=== PATIENT | female | born 1955 | race Caucasian/White ===

== ENCOUNTER 2017-12-22 17:34 | Observation (INO) ==
[2017-12-22] MEDS ORDERED: Aspirin 81 MG TAB.CHEW PO ONE (18:15)
--- NOTE | 2017-12-22 18:20 | Emergency Department Note ---
Disposition Clinical Impression: Chest pain Qualifiers: Chest pain type: unspecified Qualified Code(s): R07.9 - Chest pain, unspecified Headache Qualifiers: Headache type: unspecified Headache chronicity pattern: chronic headache Intractability: not intractable Qualified Code(s): R51 - Headache Disposition: Admitted As Inpatient General Adult HPI - General Chief complaint: ED Shortness of Breath/Dyspnea Stated complaint: Chest pressure,ABD Pain,NAVARRO Time Seen by Provider: 12/22/17 17:56 Source: patient Mode of arrival: private vehicle Limitations: no limitations Nursing Notes Reviewed: Yes Vital Signs Reviewed: Yes - History of Present Illness HPI Narrative: 62-year-old female with past medical history including hypertension, diabetes, who presents with a chief complaint of chest pressure and headache. Patient states for the past 5 days she has been having progressively worsening constant chest pressure which worsens when she lays down. This is associated with shortness of breath and dyspnea on exertion. She has never had this before. She is also complaining of a gradual generalized throbbing headache which she states she gets when she has elevated blood pressure. She has not tried anything for the pain. She is also complaining of right upper quadrant abdominal pain and bloating when she eats. She has some associated nausea. She states she had her gallbladder removed a while back. She followed up with her nurse practitioner today who advised the patient to come to the ED for further evaluation. She denies fevers, numbness or weakness, dysuria, hematochezia, vomiting, lower extremity swelling. She states she has had a catheterization in 2009 and no stents placed. She she was told she had a small blockage in the back of her heart. She also had a stress test at that time as well. Pain Scale: 9 - Related Data Home Medications Medication Instructions Recorded Confirmed Acetaminophen [Tylenol] 1,000 mg PO Q6HR 05/11/16 12/22/17 Amlodipine Besylate/Benazepril 1 cap PO DAILY 05/11/16 12/22/17 [Lotrel 10-20 mg Capsule] Atorvastatin [Lipitor] 40 mg PO HS 05/11/16 12/22/17 Carvedilol [Coreg] 25 mg PO BID 05/11/16 12/22/17 Celecoxib [Celebrex] 200 mg PO DAILY 05/11/16 12/22/17 Fluticasone Furoate [Arnuity 1 puff IH DAILY 05/11/16 12/22/17 Ellipta] Mometasone Furoate [Nasonex] 1 spray NS BID 05/11/16 12/22/17 Nitroglycerin [Nitrostat] 0.4 mg SL AD PRN 05/11/16 12/22/17 Raloxifene [Evista] 60 mg PO DAILY 05/11/16 12/22/17 Sertraline [Zoloft] 100 mg PO DAILY 05/11/16 12/22/17 Tizanidine HCl 4 mg PO Q8H PRN 05/11/16 12/22/17 Topiramate [Topamax] 100 mg PO BID 05/11/16 12/22/17 Albuterol Sulfate [Ventolin Hfa] 2 puff IH Q4H PRN 12/22/17 12/22/17 Cholecalciferol (Vitamin D3) 1,000 unit PO DAILY 12/22/17 12/22/17 [Vitamin D] Esomeprazole Magnesium [Nexium] 40 mg PO DAILY 12/22/17 12/22/17 Fluticasone Propionate Nasal 2 spray NS DAILY 12/22/17 12/22/17 [Flonase] Meclizine [Antivert] 25 mg PO DAILY PRN 12/22/17 12/22/17 Metformin HCl [Metformin HCl] 500 mg PO DAILY 12/22/17 12/22/17 Nystatin [Nystatin Suspension] 4 ml PO QID PRN 12/22/17 12/22/17 Ondansetron HCl [Ondansetron HCl] 4 mg PO Q8HR PRN 12/22/17 12/22/17 SUMAtriptan succinate [Imitrex] 50 mg PO DAILY 12/22/17 12/22/17 Sertraline [Zoloft] 25 mg PO DAILY 12/22/17 12/22/17 Tramadol HCl [Ultram] 50 mg PO QID PRN 12/22/17 12/22/17 Umeclidinium Brm/Vilanterol Tr 1 puff PO DAILY 12/22/17 12/22/17 [Anoro Ellipta 62.5-25 Mcg INH] Vit C/E/Zn/Coppr/Lutein/Zeaxan 2 cap PO DAILY 12/22/17 12/22/17 [Preservision Areds 2 Softgel] hydroCHLOROthiazide 25 mg PO DAILY 12/22/17 12/22/17 [Hydrochlorothiazide] raNITIdine HCl [Ranitidine HCl] 300 mg PO DAILY 12/22/17 12/22/17 Allergies Allergy/AdvReac Type Severity Reaction Status Date / Time ampicillin Allergy Difficulty Verified 12/22/17 21:42 Swallowing codeine Allergy Difficulty Verified 12/22/17 21:42 Swallowing All systems ED: reviewed and negative except as stated. Review of Systems: As Per HPI Constitutional: Denies: fever, chills Eyes: Denies: vision change ENT ED: Denies: throat pain, dysphagia Cardiovascular: Reports: chest pain, dyspnea on exertion, orthopnea. Denies: palpitations, edema Respiratory: Reports: dyspnea. Denies: wheezes, hemoptysis Gastrointestinal: Reports: nausea. Denies: vomiting, hematochezia Genitourinary: Denies: dysuria Musculoskeletal: Reports: neck pain (hsitory of cervical stenosis) Integumentary: Denies: rash Neurological: Reports: headache. Denies: weakness, numbness Hematological/Lymphatic: Denies: easy bruising Allergic/Immunologic: Denies: itchy eyes Past Medical History - Past Medical History Attestation: Yes The following information was validated with the patient. Source: patient Medical history: Reports: arthritis, coronary artery disease, GERD, hyperlipidemia, hypertension Surgical history: Reports: cholecystectomy, hysterectomy Psychiatric history: Reports: depression - Social History Smoking Status: Former smoker Alcohol use: Reports: none Drug use: Reports: none Physical Exam - General Limitations: no limitations General appearance: alert, in no apparent distress - Head Head exam: atraumatic, normocephalic - Eye Eye exam: Present: PERRL, EOMI - ENT ENT exam: normal exam, mucous membranes moist - Respiratory Respiratory exam: Present: normal lung sounds bilaterally. Absent: respiratory distress, wheezes, stridor, accessory muscle use - Cardiovascular Cardiovascular exam: Present: regular rate, normal rhythm, normal heart sounds - Abdominal Exam Abdominal exam: Present: soft, Non-Tender. Absent: guarding, rebound, rigidity - Extremities Exam Extremities exam: Present: full ROM. Absent: pedal edema - Neurological Exam Neurological exam: Present: alert, oriented X3, CN II-XII intact - Expanded Neurological Exam Patient oriented to: Present: person, place, time Speech: Present: fluid speech Cranial nerves: EOM function (II, III, IV, ): Normal, facial sensation (V): Normal, facial palsy (VII): Normal, spinal accessory function (XI): Normal, tongue deviation (XII): Normal Cerebellar function: finger to nose: Normal, heel to nuno: Normal Motor strength - LUE: 5/5 Motor strength - RUE: 5/5 Motor strength - LLE: 5/5 Motor strength - RLE: 5/5 Upper motor neuron exam: nubia neglect: Absent bilaterally Sensory exam upper extremity: light touch: Normal Sensory exam lower extremity: light touch: Normal - Psychiatric Psychiatric exam: Present: normal affect, normal mood - Skin Skin exam: Present: warm, dry, intact. Absent: diaphoresis, pallor Course Vital Signs Temperature 98.0 F 12/22/17 17:39 Pulse Rate 78 12/22/17 17:39 Respiratory Rate 16 12/22/17 17:39 Blood Pressure 183/95 12/22/17 17:39 O2 Sat by Pulse Oximetry 98 12/22/17 17:39 Temperature 98.0 F 12/22/17 18:19 Pulse Rate 75 12/22/17 22:17 Respiratory Rate 16 12/22/17 22:17 Blood Pressure 157/101 12/22/17 22:17 O2 Sat by Pulse Oximetry 96 12/22/17 22:17 Oxygen Delivery Oxygen Delivery Room Air Medical Decision Making - [facility] Narrative Medical decision making narrative: Patient has normal neurologic exam. Patient states she has had this headache before. It may be related to her elevated blood pressure. She has taken her medications. She does not need a CT of her head at this time. She states she already follows up and receives periodic MRI to follow up a "spot on the base of her skull." The patient has a history of cardiac catheterization and presenting with new chest pressure and shortness of breath, obtain cardiac workup. Check EKG, troponin, BNP, CBC, BMP. Chest x-ray will be obtained. 18:40 Chest x-ray results reviewed. No acute cardiopulmonary process. There are no consolidation or pleural effusions noted. EKG with sinus rhythm with first degree AV block. No evidence of acute ischemia. 19:30 Labs reviewed. Troponin is <0.03 and BNP is within normal limits. Do not suspect acute congestive heart failure as a cause of her chest pain. Tylenol was ordered for her headache. 20:00 Still eating the BMP. Discussed with the patient and family at bedside that she will likely need to be admitted for further cardiac workup. Patient is agreeable to this. Hospitalist consulted at 10:08 20:28 Discussed with hospitalist, who accepts patient for further cardiac workup. - Medical Records Medical records reviewed: Yes I reviewed the patient's medical records. - Lab Data Lab results reviewed: Yes I reviewed the patient's lab results. Result diagrams: 12/22/17 18:35 12/22/17 18:35 Lab Results 12/22/17 12/22/17 12/22/17 Range/Units 18:35 18:35 18:35 WBC 9.9 (4.3-11.1) K/mcL RBC 4.46 (3.82-4.97) M/mcL Hgb 13.2 (11.5-15.4) g/dL Hct 39.0 (35.3-44.9) % MCV 87.4 (83.0-100.0) fL MCH 29.6 (28.0-33.3) pg MCHC 33.8 (31.6-35.5) g/dL RDW 12.7 (11.5-14.5) % Plt Count 280 (140-400) K/mcL MPV 10.0 (9.4-12.4) fL Immature Gran % 0.3 (0-4) % Seg Neutrophils % 53.5 % Lymphocytes % 33.1 % Monocytes % 10.6 % Eosinophils % 2.0 % Basophils % 0.5 % Neutrophils # 5.3 (1.6-8.9) K/mcL Lymphocytes # 3.3 (0.6-4.6) K/mcL Monocytes # 1.1 (0.0-1.3) K/mcL Eosinophils # 0.2 (0.0-0.6) K/mcL Basophils # 0.1 (0.0-0.2) K/mcL PT 11.3 (9.4-12.1) Seconds INR 1.0 APTT 34.3 (26.0-36.0) Seconds Sodium (136-145) mEq/L Potassium (3.5-5.1) mEq/L Chloride (98-107) mEq/L Carbon Dioxide (23-29) mEq/L BUN (8-23) mg/dL Creatinine (0.60-1.20) mg/dL Est GFR ( Amer) (> 60) Est GFR (Non-Af Amer) (> 60) BUN/Creatinine Ratio (6-26) Glucose (70-105) mg/dL Calculated Osmolality (280-300) Calcium (8.6-10.3) mg/dL Troponin I (< 0.04) ng/mL B-Natriuretic Peptide 29 (Less than 100) pg/mL 12/22/17 Range/Units 18:35 WBC (4.3-11.1) K/mcL RBC (3.82-4.97) M/mcL Hgb (11.5-15.4) g/dL Hct (35.3-44.9) % MCV (83.0-100.0) fL MCH (28.0-33.3) pg MCHC (31.6-35.5) g/dL RDW (11.5-14.5) % Plt Count (140-400) K/mcL MPV (9.4-12.4) fL Immature Gran % (0-4) % Seg Neutrophils % % Lymphocytes % % Monocytes % % Eosinophils % % Basophils % % Neutrophils # (1.6-8.9) K/mcL Lymphocytes # (0.6-4.6) K/mcL Monocytes # (0.0-1.3) K/mcL Eosinophils # (0.0-0.6) K/mcL Basophils # (0.0-0.2) K/mcL PT (9.4-12.1) Seconds INR APTT (26.0-36.0) Seconds Sodium 140 (136-145) mEq/L Potassium 3.6 (3.5-5.1) mEq/L Chloride 106 (98-107) mEq/L Carbon Dioxide 24 (23-29) mEq/L BUN 10 (8-23) mg/dL Creatinine 0.75 (0.60-1.20) mg/dL Est GFR ( Amer) > 60 (> 60) Est GFR (Non-Af Amer) > 60 (> 60) BUN/Creatinine Ratio 13 (6-26) Glucose 109 H (70-105) mg/dL Calculated Osmolality 290 (280-300) Calcium 9.6 (8.6-10.3) mg/dL Troponin I < 0.03 (< 0.04) ng/mL B-Natriuretic Peptide (Less than 100) pg/mL - Radiology Data Radiology results reviewed: Yes I reviewed the patient's radiology results. Chest X-Ray 12/22/17 18:15 IMPRESSION: Essentially unremarkable study. D/ / Zach Diaz / Zach Diaz Interpreting Provider: Zach Diaz - EKG Data EKG #1 EKG attestation: Yes I reviewed and interpreted this EKG. EKG results narrative: EKG on 12/22/2017 at 1743 shows sinus rhythm with first-degree AV block. No ST elevation or depression. FL interval is 229 ms. QRS duration 78 ms. QTc 402 ms. Heart Score - Score History: Slightly Suspicious EKG: Normal Age: 45-65 Risk Factors: Equal/Greater than 3 risk factor or history of atherosclerotic disease Troponin: Less than normal limit HEART Score Total: 3
[2017-12-22 19:05] LABS: Basophils # 0.1 K/mcL (0.0-0.2); Basophils % 0.5 %; Eosinophils # 0.2 K/mcL (0.0-0.6); Hemoglobin 13.2 g/dL (11.5-15.4); Immature Granulocytes % 0.3 % (0-4); Lymphocytes # 3.3 K/mcL (0.6-4.6); Lymphocytes % 33.1 %; Mean Corpuscular HGB Conc 33.8 g/dL (31.6-35.5); Mean Corpuscular Hemoglobin 29.6 pg (28.0-33.3); Mean Corpuscular Volume 87.4 fL (83.0-100.0); Monocytes # 1.1 K/mcL (0.0-1.3); Monocytes % 10.6 %; Neutrophils # 5.3 K/mcL (1.6-8.9); Platelet Count 280 K/mcL (140-400); Red Blood Count 4.46 M/mcL (3.82-4.97); Red Cell Distribution Width 12.7 % (11.5-14.5); Segmented Neutrophils % 53.5 %
[2017-12-22 19:15] LABS: Activated Partial Thrombo Time 34.3 Seconds (26.0-36.0)
[2017-12-22 19:16] LABS: Troponin I < 0.03 ng/mL (< 0.04)
[2017-12-22 19:26] LABS: Prothrombin Time 11.3 Seconds (9.4-12.1)
--- NOTE | 2017-12-22 19:58 | Emergency Department Note ---
Disposition Clinical Impression: Chest pain Qualifiers: Chest pain type: unspecified Qualified Code(s): R07.9 - Chest pain, unspecified Headache Qualifiers: Headache type: unspecified Headache chronicity pattern: chronic headache Intractability: not intractable Qualified Code(s): R51 - Headache Disposition: Admitted As Inpatient Condition: Good General Adult HPI - General Chief complaint: ED Shortness of Breath/Dyspnea Stated complaint: Chest pressure,ABD Pain,NAVARRO Time Seen by Provider: 12/22/17 17:56 Source: patient Mode of arrival: private vehicle Limitations: no limitations - History of Present Illness Pain Scale: 9 - Related Data Home Medications Medication Instructions Recorded Confirmed Acetaminophen [Tylenol] 1,000 mg PO Q6HR 05/11/16 12/22/17 Amlodipine Besylate/Benazepril 1 cap PO DAILY 05/11/16 12/22/17 [Lotrel 10-20 mg Capsule] Atorvastatin [Lipitor] 40 mg PO HS 05/11/16 12/22/17 Carvedilol [Coreg] 25 mg PO BID 05/11/16 12/22/17 Celecoxib [Celebrex] 200 mg PO DAILY 05/11/16 12/22/17 Fluticasone Furoate [Arnuity 1 puff IH DAILY 05/11/16 12/22/17 Ellipta] Mometasone Furoate [Nasonex] 1 spray NS BID 05/11/16 12/22/17 Nitroglycerin [Nitrostat] 0.4 mg SL AD PRN 05/11/16 12/22/17 Raloxifene [Evista] 60 mg PO DAILY 05/11/16 12/22/17 Sertraline [Zoloft] 100 mg PO DAILY 05/11/16 12/22/17 Tizanidine HCl 4 mg PO Q8H PRN 05/11/16 12/22/17 Topiramate [Topamax] 100 mg PO BID 05/11/16 12/22/17 Albuterol Sulfate [Ventolin Hfa] 2 puff IH Q4H PRN 12/22/17 12/22/17 Cholecalciferol (Vitamin D3) 1,000 unit PO DAILY 12/22/17 12/22/17 [Vitamin D] Esomeprazole Magnesium [Nexium] 40 mg PO DAILY 12/22/17 12/22/17 Fluticasone Propionate Nasal 2 spray NS DAILY 12/22/17 12/22/17 [Flonase] Meclizine [Antivert] 25 mg PO DAILY PRN 12/22/17 12/22/17 Metformin HCl [Metformin HCl] 500 mg PO DAILY 12/22/17 12/22/17 Nystatin [Nystatin Suspension] 4 ml PO QID PRN 12/22/17 12/22/17 Ondansetron HCl [Ondansetron HCl] 4 mg PO Q8HR PRN 12/22/17 12/22/17 SUMAtriptan succinate [Imitrex] 50 mg PO DAILY 12/22/17 12/22/17 Sertraline [Zoloft] 25 mg PO DAILY 12/22/17 12/22/17 Tramadol HCl [Ultram] 50 mg PO QID PRN 12/22/17 12/22/17 Umeclidinium Brm/Vilanterol Tr 1 puff PO DAILY 12/22/17 12/22/17 [Anoro Ellipta 62.5-25 Mcg INH] Vit C/E/Zn/Coppr/Lutein/Zeaxan 2 cap PO DAILY 12/22/17 12/22/17 [Preservision Areds 2 Softgel] hydroCHLOROthiazide 25 mg PO DAILY 12/22/17 12/22/17 [Hydrochlorothiazide] raNITIdine HCl [Ranitidine HCl] 300 mg PO DAILY 12/22/17 12/22/17 Allergies Allergy/AdvReac Type Severity Reaction Status Date / Time ampicillin Allergy Difficulty Verified 12/22/17 21:42 Swallowing codeine Allergy Difficulty Verified 12/22/17 21:42 Swallowing Constitutional: Denies: fever, chills Eyes: Denies: vision change ENT ED: Denies: throat pain, dysphagia Cardiovascular: Reports: chest pain, dyspnea on exertion, orthopnea. Denies: palpitations, edema Respiratory: Reports: dyspnea. Denies: wheezes, hemoptysis Gastrointestinal: Reports: nausea. Denies: vomiting, hematochezia Genitourinary: Denies: dysuria Musculoskeletal: Reports: neck pain (hsitory of cervical stenosis) Integumentary: Denies: rash Neurological: Reports: headache. Denies: weakness, numbness Hematological/Lymphatic: Denies: easy bruising Allergic/Immunologic: Denies: itchy eyes Past Medical History - Past Medical History Medical history: Reports: arthritis, coronary artery disease, GERD, hyperlipidemia, hypertension Surgical history: Reports: cholecystectomy, hysterectomy Psychiatric history: Reports: depression - Social History Smoking Status: Former smoker Alcohol use: Reports: none Drug use: Reports: none Physical Exam - General Limitations: no limitations General appearance: alert, in no apparent distress Course Vital Signs Temperature 98.0 F 12/22/17 17:39 Pulse Rate 78 12/22/17 17:39 Respiratory Rate 16 12/22/17 17:39 Blood Pressure 183/95 12/22/17 17:39 O2 Sat by Pulse Oximetry 98 12/22/17 17:39 Temperature 98.0 F 12/22/17 18:19 Pulse Rate 75 12/22/17 22:17 Respiratory Rate 16 12/22/17 22:17 Blood Pressure 157/101 12/22/17 22:17 O2 Sat by Pulse Oximetry 96 12/22/17 22:17 Oxygen Delivery Oxygen Delivery Room Air Medical Decision Making - Lab Data Result diagrams: 12/22/17 18:35 12/22/17 18:35 Lab Results 12/22/17 12/22/17 12/22/17 Range/Units 18:35 18:35 18:35 WBC 9.9 (4.3-11.1) K/mcL RBC 4.46 (3.82-4.97) M/mcL Hgb 13.2 (11.5-15.4) g/dL Hct 39.0 (35.3-44.9) % MCV 87.4 (83.0-100.0) fL MCH 29.6 (28.0-33.3) pg MCHC 33.8 (31.6-35.5) g/dL RDW 12.7 (11.5-14.5) % Plt Count 280 (140-400) K/mcL MPV 10.0 (9.4-12.4) fL Immature Gran % 0.3 (0-4) % Seg Neutrophils % 53.5 % Lymphocytes % 33.1 % Monocytes % 10.6 % Eosinophils % 2.0 % Basophils % 0.5 % Neutrophils # 5.3 (1.6-8.9) K/mcL Lymphocytes # 3.3 (0.6-4.6) K/mcL Monocytes # 1.1 (0.0-1.3) K/mcL Eosinophils # 0.2 (0.0-0.6) K/mcL Basophils # 0.1 (0.0-0.2) K/mcL PT 11.3 (9.4-12.1) Seconds INR 1.0 APTT 34.3 (26.0-36.0) Seconds Sodium (136-145) mEq/L Potassium (3.5-5.1) mEq/L Chloride (98-107) mEq/L Carbon Dioxide (23-29) mEq/L BUN (8-23) mg/dL Creatinine (0.60-1.20) mg/dL Est GFR ( Amer) (> 60) Est GFR (Non-Af Amer) (> 60) BUN/Creatinine Ratio (6-26) Glucose (70-105) mg/dL Calculated Osmolality (280-300) Calcium (8.6-10.3) mg/dL Troponin I (< 0.04) ng/mL B-Natriuretic Peptide 29 (Less than 100) pg/mL 12/22/17 Range/Units 18:35 WBC (4.3-11.1) K/mcL RBC (3.82-4.97) M/mcL Hgb (11.5-15.4) g/dL Hct (35.3-44.9) % MCV (83.0-100.0) fL MCH (28.0-33.3) pg MCHC (31.6-35.5) g/dL RDW (11.5-14.5) % Plt Count (140-400) K/mcL MPV (9.4-12.4) fL Immature Gran % (0-4) % Seg Neutrophils % % Lymphocytes % % Monocytes % % Eosinophils % % Basophils % % Neutrophils # (1.6-8.9) K/mcL Lymphocytes # (0.6-4.6) K/mcL Monocytes # (0.0-1.3) K/mcL Eosinophils # (0.0-0.6) K/mcL Basophils # (0.0-0.2) K/mcL PT (9.4-12.1) Seconds INR APTT (26.0-36.0) Seconds Sodium 140 (136-145) mEq/L Potassium 3.6 (3.5-5.1) mEq/L Chloride 106 (98-107) mEq/L Carbon Dioxide 24 (23-29) mEq/L BUN 10 (8-23) mg/dL Creatinine 0.75 (0.60-1.20) mg/dL Est GFR ( Amer) > 60 (> 60) Est GFR (Non-Af Amer) > 60 (> 60) BUN/Creatinine Ratio 13 (6-26) Glucose 109 H (70-105) mg/dL Calculated Osmolality 290 (280-300) Calcium 9.6 (8.6-10.3) mg/dL Troponin I < 0.03 (< 0.04) ng/mL B-Natriuretic Peptide (Less than 100) pg/mL Attestation Statement - Attestation Attestation: I examined this patient and my medical decision-making was reviewed with the Resident Physician. I agree with the documented findings, disposition and treatment plan as described except to the extent set forth below. Patient to the ED complaining of chest pressure. Shortness of breath. Headache. Weakness. Patient states she has felt bad for several days. On exam she is in no acute distress. Heart regular rate and rhythm her lungs are clear. Her abdomen soft nontender. She is neurologically intact. Symmetric dedicated intermodal truck driver strength. No rash. Plan. Cardiac workup. Workup negative. Patient a heart score 3. No recent cardiac workup. We will admit.
[2017-12-22 20:06] LABS: BUN/Creatinine Ratio 13 (6-26); Blood Urea Nitrogen 10 mg/dL (8-23); Calcium 9.6 mg/dL (8.6-10.3); Carbon Dioxide 24 mEq/L (23-29); Chloride 106 mEq/L (98-107); Glucose 109 mg/dL (70-105); Osmolality,Calculated 290 (280-300); Potassium 3.6 mEq/L (3.5-5.1); Sodium 140 mEq/L (136-145); eGFR For Non-African Americans > 60 (> 60)
[2017-12-22] MEDS ORDERED: tiZANidine 4 MG TABLET PO PRN (21:47)
[2017-12-22] MEDS ORDERED: Nitroglycerin 0.4 MG TAB.SUBL SL PRN (21:47)
[2017-12-22] MEDS ORDERED: traMADol 50 MG TABLET PO PRN (22:41)
--- NOTE | 2017-12-22 22:47 | Internal Med History&Physical ---
Date of Encounter: 12/22/17 Time of Encounter: 21:00 Internal Medicine - H&P: HPI Chief complaint: chest pain Admitted From: Home Plans for Post Hospital Care: Home History of present illness: 62 old woman with a history of hypertension and pre-diabetes who comes in complaining of chest pressure and headache for the past 5 days stating that is progressively worsening and worsens when laying down. She describes it as something sitting on her chest and feels like ice is over it. It is also associated with shortness of breath and throbbing. She also complains of upper abdominal discomfort which has been longstanding. On arrival she was found hypertensive at 183/95mmHg. Her lab work and EKG were grossly unremarkable. She received APAP and ASA. On my assessment she was laying comfortably in bed stating that the chest discomfort was no longer present. She reports having a cardiac cath in 2009 but no stents were placed. Past Med Surg Social Fam HX - Past Medical History Medical history: arthritis, coronary artery disease, GERD, hyperlipidemia, hypertension Additional medical history: mrsa,migraine,obesity,chest pain,endometrriosis, morphea,intertrigo Psychiatric history: depression - Past Surgical History Surgical History: cholecystectomy, hysterectomy Additional surgical history: cardiac cath no stents,excision of back mass, - Social History Smoking Status: Former smoker Alcohol use: none Drug use: none Internal Medicine - H&P: Meds Acetaminophen [Tylenol] 1,000 mg PO Q6HR 05/11/16 [History] Amlodipine Besylate/Benazepril [Lotrel 10-20 mg Capsule] 1 cap PO DAILY [History] Atorvastatin [Lipitor] 40 mg PO HS 05/11/16 [History] Carvedilol [Coreg] 25 mg PO BID 05/11/16 [History] Celecoxib [Celebrex] 200 mg PO DAILY 05/11/16 [History] Fluticasone Furoate [Arnuity Ellipta] 1 puff IH DAILY 05/11/16 [History] Mometasone Furoate [Nasonex] 1 spray NS BID 05/11/16 [History] Nitroglycerin [Nitrostat] 0.4 mg SL AD PRN 05/11/16 [History] Raloxifene [Evista] 60 mg PO DAILY 05/11/16 [History] Sertraline [Zoloft] 100 mg PO DAILY 05/11/16 [History] Tizanidine HCl 4 mg PO Q8H PRN 05/11/16 [History] Topiramate [Topamax] 100 mg PO BID 05/11/16 [History] Albuterol Sulfate [Ventolin Hfa] 2 puff IH Q4H PRN 12/22/17 [History] Cholecalciferol (Vitamin D3) [Vitamin D] 1,000 unit PO DAILY 12/22/17 [History] Esomeprazole Magnesium [Nexium] 40 mg PO DAILY 12/22/17 [History] Fluticasone Propionate Nasal [Flonase] 2 spray NS DAILY 12/22/17 [History] Meclizine [Antivert] 25 mg PO DAILY PRN 12/22/17 [History] Metformin HCl [Metformin HCl] 500 mg PO DAILY 12/22/17 [History] Nystatin [Nystatin Suspension] 4 ml PO QID PRN 12/22/17 [History] Ondansetron HCl [Ondansetron HCl] 4 mg PO Q8HR PRN 12/22/17 [History] SUMAtriptan succinate [Imitrex] 50 mg PO DAILY 12/22/17 [History] Sertraline [Zoloft] 25 mg PO DAILY 12/22/17 [History] Tramadol HCl [Ultram] 50 mg PO QID PRN 12/22/17 [History] Umeclidinium Brm/Vilanterol Tr [Anoro Ellipta 62.5-25 Mcg INH] 1 puff PO DAILY 12/22/17 [History] Vit C/E/Zn/Coppr/Lutein/Zeaxan [Preservision Areds 2 Softgel] 2 cap PO DAILY 03/29 [History] hydroCHLOROthiazide [Hydrochlorothiazide] 25 mg PO DAILY 12/22/17 [History] raNITIdine HCl [Ranitidine HCl] 300 mg PO DAILY 12/22/17 [History] 3 Allergy/AdvReac Type Severity Reaction Status Date / Time ampicillin Allergy Difficulty Verified 12/22/17 21:42 Swallowing codeine Allergy Difficulty Verified 12/22/17 21:42 Swallowing All Systems PM: A 10-system review of systems was performed and is negative for pertinent findings except as documented above in the HPI. - Constitutional Vitals: Temp Pulse Resp BP Pulse Ox 98.0 F 75 16 157/101 96 09/12/18 18:19 12/22/17 22:17 12/22/17 22:17 12/22/17 22:17 12/22/17 22:17 Exam: Vitals: Reviewed General: Obese, NAD Skin: Warm and supple. HEENT: Moist mucous membranes. No conjunctivae pallor. Neck: No lymphadenopathy. No JVD. No carotid bruits. No palpable thyroid. Chest: Normal thoracic expansion. Normal breath sounds. Clear to auscultation. Heart: Normal S1 & S2; rhythmic. No rubs or murmurs. Abdomen: Non-distended, soft and non-tender to palpation. No peritoneal reaction. Extremities: No clubbing, cyanosis or edema. No calf tenderness. Normal distal pulses. Neurological: Awake, alert and oriented to person, place and time. No focal deficits. Psych: Affect appropriate. Internal Med - H&P Results - Labs CBC & Chem 7: 12/22/17 18:35 12/22/17 18:35 - Assessment and plan (1) Chest pain Current Visit: Yes Status: Acute Assessment and plan: Atypical symptoms and has moderate risk of coronary disease. EKG not showing acute ischemic signs for now. Will keep on telemetry, obtain repeat EKG, trend troponins and given her presentation and risk factors, will benefit from stress testing. Qualifiers: Chest pain type: unspecified Qualified Code(s): R07.9 - Chest pain, unspecified (2) Hypertension Current Visit: Yes Status: Acute Assessment and plan: Poorly controlled although the patient reports adherence to her multiple medications. Will resume oral antihypertensives and observe trend. Qualifiers: Hypertension type: essential hypertension Qualified Code(s): I10 - Essential (primary) hypertension (3) Headache Current Visit: Yes Status: Acute Assessment and plan: Likely associated with her elevated BP values on presentation. Now improved alongside lower BP levels. Will continue APAP prn and manage her BP. Qualifiers: Headache type: tension-type Headache chronicity pattern: episodic headache Intractability: not intractable Qualified Code(s): G44.219 - Episodic tension-type headache, not intractable (4) Prediabetes Current Visit: Yes Status: Acute Assessment and plan: Will keep on daily metformin 500mg for now. Will benefit from weight loss. (5) DVT prophylaxis Current Visit: Yes Status: Acute Assessment and plan: Heparin SubQ ordered. - Time Spent With Patient Total time spent is greater than 50% in coordination of care (as documented) at patient's floor/unit and/or counseling patient: Greater than 35 minutes
[2017-12-22] MEDS: *HR* HYDROcodone/Acet 5/325 mg TABLET PO PRN (23:41)
[2017-12-23] MEDS: *HR* Heparin 5,000 UNIT/ML VIAL SQ SCH ×3 (06:06→21:51)
[2017-12-23] MEDS: Ondansetron ODT 4 MG TAB.RAPDIS PO PRN ×2 (06:13→18:25)
[2017-12-23] MEDS ORDERED: Regadenoson 0.4 MG/5 ML SYRINGE IVP ONE (06:20)
[2017-12-23] MEDS ORDERED: Famotidine 20 MG TABLET PO SCH (09:00)
[2017-12-23] MEDS ORDERED: SUMAtriptan succinate 50 MG TABLET PO PRN (09:00)
[2017-12-23] MEDS ORDERED: MOMETASONE FUROATE NS SCH (09:00)
[2017-12-23] MEDS: *HR* Metformin 500 MG TABLET PO SCH (10:05)
[2017-12-23] MEDS: Aspirin 81 MG TAB.CHEW PO SCH (10:05)
[2017-12-23] MEDS: hydroCHLOROthiazide 25 MG TABLET PO SCH (10:05)
[2017-12-23] MEDS: Celecoxib 200 MG CAPSULE PO SCH (10:05)
[2017-12-23] MEDS: Lisinopril 20 MG TABLET PO SCH (10:06)
[2017-12-23] MEDS: Cholecalciferol (D-3) 1,000 UNIT TABLET PO SCH (10:06)
[2017-12-23] MEDS: Topiramate 100 MG TABLET PO SCH ×2 (10:06→21:46)
[2017-12-23] MEDS: amLODIPine 5 MG TABLET PO SCH (10:06)
[2017-12-23] MEDS: ARNUITY ELLIPTA IH SCH (10:07)
[2017-12-23] MEDS: Fluticasone Propionate Nasal 50 MCG/SPRAY BOTTLE NS SCH (10:07)
[2017-12-23] MEDS: (Anoro Ellipta 62.5-2) PO SCH (10:34)
[2017-12-23] MEDS: Beclomethasone 80mcg MDI IH SCH ×2 (10:44→19:38)
[2017-12-23] MEDS: *HR* HYDROcodone/Acet 5/325 mg TABLET PO PRN (15:05)
[2017-12-23] MEDS ORDERED: Gadolinium Contrast Agent (WT Based) IV PRN (15:33)
--- NOTE | 2017-12-23 15:44 | Electrocardiograph Report ---
[place] [id number] Test Date: 2017-12-22 Pat Name: Fabiola Cardona Department: [id number] Room: 3B24 Gender: F Primary Care Nurse Practitioner: RAUL : 1955 Requested By: Kanwal Olivas Order Number: [id number] Reading MD: Eli Carlos Measurements Intervals Bee Rate: 79 P: 40 NM: 229 QRS: 26 QRSD: 78 T: 59 QT: 367 QTc: 402 Interpretive Statements SINUS RHYTHM WITH FIRST DEGREE AV BLOCK Electronically Signed On 12-23-2017 15:42:33 EDT by Eli Carlos
--- NOTE | 2017-12-23 19:02 | Internal Med Progress Note ---
Hospitalist Progress Note - Encounter Date of Encounter: 12/23/17 Time of Encounter: 11:00 - Subjective Interval History: Patient reports of slight substernal chest discomfort this morning in addition to headaches. Patient completed part 1 of 2 of nuclear medicine stress tests. MRI of brain ordered for evaluation of headaches and is pending - Exam Vitals: Temp Pulse Resp BP Pulse Ox 98.0 F 70 16 126/69 92 12/23/17 15:32 12/23/17 15:32 12/23/17 15:32 12/23/17 15:32 12/23/17 15:32 Exam: Gen.: Nonacute distress, alert and oriented 3 ENT: Mucosal membranes moist Respiratory: Lungs are clear to auscultation bilaterally without any wheezing rhonchi or rales Cardiovascular: Normal S1 and S2 regular rate rhythm no murmurs rubs or gallops Abdomen: Soft, nontender and nondistended with positive bowel sounds Extremities: No lower extremity edema Skin: Normal color - Assessment and Plan (1) Chest pain Current Visit: Yes Status: Acute Assessment and Plan: Troponins negative 3 Patient to complete part two of nuclear medicine stress tests on (2) Headache Current Visit: Yes Status: Acute Assessment and Plan: Patient concerned of headaches that are different than her normal migraines She reports of a "brain mass" that was found in the 90s that has not been followed up. She is also concerned that she has a family history of brain aneurysms MRI ordered and pending (3) Hypertension Current Visit: Yes Status: Acute Assessment and Plan: Blood pressures now controlled; continue home medications (4) DVT prophylaxis Current Visit: Yes Status: Acute Assessment and Plan: Heparin SubQ ordered. - Time Spent with Patient Total time spent is greater than 50% in coordination of care (as documented) at patient's floor/unit and/or counseling patient: Internal Medicine: Result - Labs CBC & Chem 7: 12/22/17 18:35 12/22/17 18:35 Labs: Cardiac Enzymes 12/23/17 12/23/17 Range/Units 00:20 06:18 Troponin I < 0.03 < 0.03 (< 0.04) ng/mL - ABG Interpretation ABG results: PT/INR, D-dimer PT 11.3 Seconds (9.4-12.1) 12/22/17 18:35 - Impressions Impressions Echocardiogram 12/23/17 21:52 Impressions: LVEF 60-65%. Mild left ventricular diastolic dysfunction. Normal right ventricular structure and function. Mild mitral regurgitation. Mild tricuspid regurgitation. Mild aortic regurgitation. No pulmonary hypertension. Left Ventricular Wall Motion: Rest Echo Findings All wall segments showed normal motion. Findings: Study Quality * Technically adequate exam. ECG Findings * Normal sinus rhythm. Left Ventricle * LVEF 60-65%. * Normal LV chamber size, wall thickness and function. * Mild left ventricular diastolic dysfunction. Right Ventricle * Normal right ventricular structure and function. Left Atrium * Mildly dilated left atrium. Right Atrium * Normal right atrial size. Aortic Valve * Trileaflet aortic valve. * No aortic stenosis. * Mild aortic regurgitation. Mitral Valve * Normal mitral valve structure. * No mitral stenosis. * Mild mitral regurgitation. Tricuspid Valve * Normal tricuspid valve structure. * Mild tricuspid regurgitation. * Estimated RA pressure is 3 mmHg. * Estimated RVSP is 29 mmHg. * No pulmonary hypertension. Pulmonic Valve * Pulmonic valve is not well visualized. * No pulmonic stenosis. * Trace pulmonic regurgitation. Pulmonary Artery * Pulmonary artery not well visualized. Aorta * Normally sized aortic root. Pericardium * There is no pericardial effusion present. Interatrial Septum * No evidence of PFO by color Doppler. IVC * The IVC is not dilated. Consult Discharge Plan - Plan Referrals: Lucía Arriaga, [employer] [Primary Care Provider] - (1) Chest pain Qualifiers: Chest pain type: unspecified Qualified Code(s): R07.9 - Chest pain, unspecified (2) Headache Qualifiers: Headache type: tension-type Headache chronicity pattern: episodic headache Intractability: not intractable Qualified Code(s): G44.219 - Episodic tension- type headache, not intractable (3) Hypertension Qualifiers: Hypertension type: essential hypertension Qualified Code(s): I10 - Essential (primary) hypertension
[2017-12-23] MEDS ORDERED: *HR* LORazepam 2 MG/ML VIAL IVP ONE (20:30)
[2017-12-23] MEDS ORDERED: *HR* Promethazine 25 MG/ML VIAL IVP PRN (21:20)
[2017-12-24] MEDS: *HR* Heparin 5,000 UNIT/ML VIAL SQ SCH ×3 (05:52→21:11)
[2017-12-24] MEDS: Lisinopril 20 MG TABLET PO SCH (08:18)
[2017-12-24] MEDS: amLODIPine 5 MG TABLET PO SCH (08:18)
[2017-12-24] MEDS: Celecoxib 200 MG CAPSULE PO SCH (08:19)
[2017-12-24] MEDS: *HR* Metformin 500 MG TABLET PO SCH (08:19)
[2017-12-24] MEDS: Fluticasone Propionate Nasal 50 MCG/SPRAY BOTTLE NS SCH (08:19)
[2017-12-24] MEDS: Cholecalciferol (D-3) 1,000 UNIT TABLET PO SCH (08:19)
[2017-12-24] MEDS: ARNUITY ELLIPTA IH SCH (08:19)
[2017-12-24] MEDS: (Anoro Ellipta 62.5-2) PO SCH (08:20)
[2017-12-24] MEDS: hydroCHLOROthiazide 25 MG TABLET PO SCH (10:10)
[2017-12-24] MEDS: Beclomethasone 80mcg MDI IH SCH ×2 (10:19→19:38)
[2017-12-24 10:51] LABS: Alanine Aminotransferase 12 Units/L (7-52); Albumin 4.1 g/dL (3.5-5.7); Albumin/Globulin Ratio 1.5 (1.1-2.2); Alkaline Phosphatase 65 Units/L (34-104); Aspartate Amino Transferase 16 Units/L (13-39); BUN/Creatinine Ratio 22 (6-26); Bilirubin,Total 0.5 mg/dL (0.3-1.0); Blood Urea Nitrogen 17 mg/dL (8-23); Calcium 9.7 mg/dL (8.6-10.3); Carbon Dioxide 29 mEq/L (23-29); Chloride 102 mEq/L (98-107); Globulin 2.7 g/dL (2.4-3.5); Glucose 96 mg/dL (70-105); Osmolality,Calculated 289 (280-300); Sodium 139 mEq/L (136-145); Total Protein 6.8 g/dL (6.4-8.9); eGFR For Non-African Americans > 60 (> 60)
[2017-12-24] MEDS ORDERED: *HR* LORazepam 0.5 MG TABLET PO PRN (10:55)
[2017-12-24] MEDS: Topiramate 100 MG TABLET PO SCH ×3 (11:05→21:11)
[2017-12-24] MEDS: Aspirin 81 MG TAB.CHEW PO SCH (11:06)
[2017-12-24] MEDS ORDERED: Aspirin 81 MG TAB.CHEW PO SCH (12:00)
--- NOTE | 2017-12-24 18:53 | Discharge Summary ---
- NOTES TO OUTPATIENT PROVIDER Notes to Outpatient Provider: none Orders not resulted at time of discharge: Pending orders 12/23/17 07:47 NM joseph perf SPECT multi [NM] Routine 12/23/17 15:33 MR head/brain wo/w con [MR] Routine Date of Encounter: 12/24/17 Time of Encounter: 11:00 - Discharge Diagnosis (1) Chest pain Priority: Primary Status: Acute Qualifiers: Chest pain type: unspecified Qualified Code(s): R07.9 - Chest pain, unspecified (2) Headache Priority: Primary Status: Acute Qualifiers: Headache type: tension-type Headache chronicity pattern: episodic headache Intractability: not intractable Qualified Code(s): G44.219 - Episodic tension-type headache, not intractable (3) Hypertension Priority: Secondary Status: Acute Qualifiers: Hypertension type: essential hypertension Qualified Code(s): I10 - Essential (primary) hypertension Hospital course: Patient is a 62-year-old female with past medical history significant for hypertension who presented to the ER on 12/22/17 due to chest pressure and headaches. She reported of a five-day history of chest pressure which progressively worsened in addition to headaches. Patient described chest pressure as if someone was sitting on her chest. In the ER, she was found hypertensive at 183/95mmHg. Her lab work and EKG were grossly unremarkable. Patient was admitted to medical surgical floor for ACS rule out. During patients hospital stay her cardiac biomarkers were negative and nuclear medicine stress test was negative for ischemia and infarct. In addition patient also had MRI to evaluate headaches due to concerns for a detected mass and brain approximately 2 decades ago. Test was done however due to patient reporting that headaches are worse than normal. - Time Spent with Patient Total time spent providing and/or coordinating discharge services: Less than 30 minutes - Discharge Medications Home Medications: Acetaminophen [Tylenol] 1,000 mg PO Q6HR 05/11/16 [History] Amlodipine Besylate/Benazepril [Lotrel 10-20 mg Capsule] 1 cap PO DAILY [History] Atorvastatin [Lipitor] 40 mg PO HS 05/11/16 [History] Carvedilol [Coreg] 25 mg PO BID 05/11/16 [History] Celecoxib [Celebrex] 200 mg PO DAILY 05/11/16 [History] Fluticasone Furoate [Arnuity Ellipta] 1 puff IH DAILY 05/11/16 [History] Mometasone Furoate [Nasonex] 1 spray NS BID 05/11/16 [History] Nitroglycerin [Nitrostat] 0.4 mg SL AD PRN 05/11/16 [History] Raloxifene [Evista] 60 mg PO DAILY 05/11/16 [History] Sertraline [Zoloft] 100 mg PO DAILY 05/11/16 [History] Tizanidine HCl 4 mg PO Q8H PRN 05/11/16 [History] Topiramate [Topamax] 100 mg PO BID 05/11/16 [History] Albuterol Sulfate [Ventolin Hfa] 2 puff IH Q4H PRN 12/22/17 [History] Cholecalciferol (Vitamin D3) [Vitamin D] 1,000 unit PO DAILY 12/22/17 [History] Esomeprazole Magnesium [Nexium] 40 mg PO DAILY 12/22/17 [History] Fluticasone Propionate Nasal [Flonase] 2 spray NS DAILY 12/22/17 [History] Meclizine [Antivert] 25 mg PO DAILY PRN 12/22/17 [History] Metformin HCl [Metformin HCl] 500 mg PO DAILY 12/22/17 [History] Nystatin [Nystatin Suspension] 4 ml PO QID PRN 12/22/17 [History] Ondansetron HCl [Ondansetron HCl] 4 mg PO Q8HR PRN 12/22/17 [History] SUMAtriptan succinate [Imitrex] 50 mg PO DAILY 12/22/17 [History] Sertraline [Zoloft] 25 mg PO DAILY 12/22/17 [History] Tramadol HCl [Ultram] 50 mg PO QID PRN 12/22/17 [History] Umeclidinium Brm/Vilanterol Tr [Anoro Ellipta 62.5-25 Mcg INH] 1 puff PO DAILY 12/22/17 [History] Vit C/E/Zn/Coppr/Lutein/Zeaxan [Preservision Areds 2 Softgel] 2 cap PO DAILY 03/29 [History] hydroCHLOROthiazide [Hydrochlorothiazide] 25 mg PO DAILY 12/22/17 [History] raNITIdine HCl [Ranitidine HCl] 300 mg PO DAILY 12/22/17 [History] Allergies/Adverse Reactions: 3 Allergy/AdvReac Type Severity Reaction Status Date / Time ampicillin Allergy Difficulty Verified 12/22/17 21:42 Swallowing codeine Allergy Difficulty Verified 12/22/17 21:42 Swallowing Date of admission: 12/22/17 21:06 Primary care physician: Lucía Arriaga, - Constitutional Vitals: Temp Pulse Resp BP Pulse Ox 98.2 F 74 18 121/74 97 12/24/17 16:23 12/24/17 16:23 12/24/17 16:23 12/24/17 16:23 12/24/17 16:23 Exam: Gen.: Nonacute distress, alert and oriented 3 Cardiovascular: Normal S1 and S2 regular rate rhythm no murmurs rubs or gallops - Patient Status Disposition: Home, Self-Care Condition: Good - Discharge Instructions Follow Up With: Lucía Arriaga CNP [Primary Care Provider] - 12/31/17 1:00 pm () Sherman Do MD [Partnered Physician] - 12/30/17 1:45 pm
--- NOTE | 2017-12-24 23:06 | Event Note ---
Date of Encounter: 12/24/17 Time of Encounter: 23:03 MRI ordered of pts. head/brain d/t current headaches and report of something found on imaging many years ago. MRI completed late this evening. Still waiting on resulted report @ 23:06. Will plan on keeping pt. overnight and monitoring closely.
[2017-12-25] MEDS: *HR* Heparin 5,000 UNIT/ML VIAL SQ SCH (05:45)
[2017-12-25 08:02] VITALS: BP 119/64
[2017-12-25] MEDS: Beclomethasone 80mcg MDI IH SCH (08:09)
--- NOTE | 2017-12-25 10:37 | Internal Med Progress Note ---
Hospitalist Progress Note - Encounter Date of Encounter: 12/25/17 Time of Encounter: 10:30 - Subjective Interval History: Patient's nuclear medicine stress test negative and MRI of the brain showed no acute findings Discussed results with patient this morning She will now be discharged - Exam Vitals: Temp Pulse Resp BP Pulse Ox 98 F 71 16 119/64 94 12/25/17 08:01 12/25/17 08:01 12/25/17 08:11 12/25/17 08:01 12/25/17 08:11 Exam: Gen.: Nonacute distress, alert and oriented 3 Neurological: Alert and oriented 3 and no neurological deficits noted - Assessment and Plan (1) Chest pain Current Visit: Yes Status: Acute Assessment and Plan: Troponins negative 3 and nuclear medicine stress tests negative; ACS rule out (2) Headache Current Visit: Yes Status: Acute Assessment and Plan: MRI of the brain showed no acute infarct or hemorrhage and no acute mass Headache secondary to migraines and patient to follow-up with primary care provider for management (3) Hypertension Current Visit: Yes Status: Acute Assessment and Plan: Blood pressures now controlled; continue home medications - Time Spent with Patient Total time spent is greater than 50% in coordination of care (as documented) at patient's floor/unit and/or counseling patient: Internal Medicine: Result - Labs CBC & Chem 7: 12/22/17 18:35 12/24/17 10:02 Labs: BMP 12/24/17 10:02 Sodium 139 Potassium 4.0 Chloride 102 Carbon Dioxide 29 BUN 17 Creatinine 0.77 Glucose 96 Calcium 9.7 Liver Function 12/24/17 Range/Units 10:02 Total Bilirubin 0.5 (0.3-1.0) mg/dL AST 16 (13-39) Units/L ALT 12 (7-52) Units/L Alkaline Phosphatase 65 (34-104) Units/L Albumin 4.1 (3.5-5.7) g/dL - ABG Interpretation ABG results: PT/INR, D-dimer PT 11.3 Seconds (9.4-12.1) 12/22/17 18:35 - Impressions Impressions Brain MRI 12/23/17 15:33 IMPRESSION: Mild patchy small vessel ischemic changes in the white matter bilaterally. No acute infarct or hemorrhage. There is no acute mass Punctate high diffusion signal in the rupali. Artifact is favored over recent ischemia D/ / Keo Mckinney / Keo Mckinney Interpreting Provider: Keo Mckinney Consult Discharge Plan - Plan Instructions: Chest Pain (DC), Chronic Hypertension (DC) Referrals: Lucía Arriaga CNP [Primary Care Provider] - 12/31/17 1:00 pm () Sherman Do MD [Partnered Physician] - 12/30/17 1:45 pm (1) Chest pain Qualifiers: Chest pain type: unspecified Qualified Code(s): R07.9 - Chest pain, unspecified (2) Headache Qualifiers: Headache type: tension-type Headache chronicity pattern: episodic headache Intractability: not intractable Qualified Code(s): G44.219 - Episodic tension- type headache, not intractable (3) Hypertension Qualifiers: Hypertension type: essential hypertension Qualified Code(s): I10 - Essential (primary) hypertension
== END 2017-12-25 10:51 | disposition home or self-care (01) ==
LOC: 3BNU 17:34 → EMEROOARM 17:34 → SUATTDRO 21:06 → 3BNU 22:35
PROVIDERS: ADMIT Internal Medicine; ATTEND Hospitalist